=== PATIENT | female | born 1925 | race Caucasian/White ===

== ENCOUNTER → 2016-09-10 | Outpatient (CLI) | payer MEDICARE | END | disposition home or self-care (01) | LOC: YCHH 09:16 | PROVIDERS: ATTEND Family Medicine | DX: I10 Essential (primary) hypertension (principal); D64.9 Anemia, unspecified; E78.5 Hyperlipidemia, unspecified ==

== ENCOUNTER → 2016-09-24 | Outpatient (CLI) | payer MEDICARE | END | disposition home or self-care (01) | LOC: YCHH 10:49 | PROVIDERS: ATTEND Family Medicine | DX: D64.9 Anemia, unspecified (principal) ==

== ENCOUNTER → 2016-10-15 | Outpatient (CLI) | payer MEDICARE | END | disposition home or self-care (01) | LOC: YCHH 15:44 | PROVIDERS: ATTEND Family Medicine | DX: Z79.899 Other long term (current) drug therapy (principal) ==